=== PATIENT | female | born 1985 | race Caucasian/White ===

== ENCOUNTER 2022-10-04 11:47 | Observation (INO) ==
[2022-10-04 13:16] LABS: Hematocrit 38 % (35-47); Hemoglobin 12.8 g/dL (12.0-16.0); Mean Corpuscular HGB Conc 34 g/dL (31-36); Mean Corpuscular Hemoglobin 30 pg (27-31); Mean Corpuscular Volume 88 fL (80-97); Mean Platelet Volume 7.7 fL (7.4-10.4); Platelet Count 266 10^3/uL (150-450); Red Blood Count 4.34 10^6 /uL (3.70-4.87); Red Cell Distribution Width 13 % (10-15); White Blood Count 17.6 10^3/uL (3.5-10.8)
[2022-10-04] MEDS ORDERED: Albuterol HFA INHALER 8 gm MDI INH ONE (13:37)
[2022-10-04] MEDS ORDERED: NS 0.9% 1000 ml BAG 1,000 ML IV ONE (13:37)
[2022-10-04] MEDS ORDERED: Acetaminophen IV 1 GM/100ML 1,000 MG/100 ML BAG IV ONE (13:45)
[2022-10-04 13:54] LABS: Albumin/Globulin Ratio 1.4 (1-3); Creatinine, Serum 0.64 mg/dL (0.51-0.95); Globulin 2.8 g/dL (2-4); Magnesium 1.9 mg/dL (1.9-2.7); Potassium 3.8 mmol/L (3.5-5.0); Total Bilirubin 0.7 mg/dL (0.2-1.0); Total Protein 6.8 g/dL (6.4-8.9); eGFR CKD-EPI 115.9 (>60)
[2022-10-04] MEDS ORDERED: Iohexol 350 (CONTRAST) 500 ML MDV IV ONE (14:00)
[2022-10-04 14:27] LABS: ABS Basophils 0.1 10^3/ul (0-0.2); ABS Eosinophils 0.4 10^3/ul (0-0.6); ABS Lymphocytes 2.2 10^3/ul (1.0-4.8); ABS Monocytes 1.6 10^3/ul (0-0.8); ABS Neutrophils 13.3 10^3/ul (1.5-7.7); Eosinophil % 2.1 %; Lymphocyte % 12.6 %
[2022-10-04 15:09] LABS: High Sensitivity Troponin 1 Hr 3 pg/mL (<15)
[2022-10-04] MEDS ORDERED: Piperacillin/Tazobac ADVAN 3.375 GM in NS 0.9% 100 ml BAG 100 ML IV ONE ×2 (15:16→22:00)
[2022-10-04] MEDS ORDERED: NS 0.9% 1000 ml BAG 1,000 ML IV SCH (15:30)
[2022-10-04 16:45] LABS: C Reactive Protein 304.5 mg/L (<8.01)
[2022-10-04 18:40] LABS: Activated Partial Thrombo Time 30.5 seconds (26.0-38.0); INR 1.43 (0.88-1.18)
[2022-10-04] MEDS ORDERED: Zosyn per Pharmacy NOTE FOLLOW UP SCH (19:00)
[2022-10-04] MEDS ORDERED: ZOSYN 3.375 GM Q8H per EXTENDED INFUSION IV SCH (19:30)
[2022-10-04] MEDS: NS 0.9% 1000 ml BAG 1,000 ML IV SCH (20:29)
[2022-10-04] MEDS ORDERED: Morphine 2 MG/ML SYRINGE IV ONE (20:49)
[2022-10-05] MEDS: ZOSYN 3.375 GM Q8H per EXTENDED INFUSION IV SCH ×2 (04:26→13:08)
[2022-10-05 06:27] LABS: ABS Basophils 0.1 10^3/ul (0-0.2); ABS Eosinophils 0.9 10^3/ul (0-0.6); ABS Monocytes 0.9 10^3/ul (0-0.8); ABS Neutrophils 9.1 10^3/ul (1.5-7.7); Eosinophil % 6.8 %; Hematocrit 34 % (35-47); Hemoglobin 11.3 g/dL (12.0-16.0); Lymphocyte % 15.2 %; Mean Corpuscular HGB Conc 33 g/dL (31-36); Mean Corpuscular Hemoglobin 29 pg (27-31); Mean Corpuscular Volume 88 fL (80-97); Mean Platelet Volume 7.8 fL (7.4-10.4); Platelet Count 237 10^3/uL (150-450); Red Blood Count 3.83 10^6 /uL (3.70-4.87); Red Cell Distribution Width 13 % (10-15); White Blood Count 12.9 10^3/uL (3.5-10.8)
[2022-10-05 06:46] LABS: Creatinine, Serum 0.65 mg/dL (0.51-0.95); Potassium 3.7 mmol/L (3.5-5.0); eGFR CKD-EPI 115.5 (>60)
[2022-10-05] MEDS: NS 0.9% 1000 ml BAG 1,000 ML IV SCH (07:39)
[2022-10-05 15:35] VITALS: BP 119/69
== END 2022-10-05 18:05 | disposition home or self-care (01) ==
LOC: ED 11:47 → EDHOLD 11:47 → MED 20:37
PROVIDERS: ADMIT Internal Medicine Hematology & Oncology; ATTEND Internal Medicine Hematology & Oncology